=== PATIENT | female | born 1955 | race Two or more races ===

== ENCOUNTER 2023-07-31 13:33 | Emergency (ER) | payer OTHER ==
[~2023-07-31] VITALS: Ht 162.6 cm; Wt 60.8 kg
[2023-07-31] MEDS ORDERED: BISOPROLOL-HCT1 EAC1 PO (13:43)
[2023-07-31 16:02] LABS: HEMATOCRIT 44.1 % (36.0-45.00); HEMOGLOBIN 14.9 g/dL (12.0-15.00); MEAN CELL VOLUME 89.8 fL (80.00-100.00); MEAN CORPUSCULAR HEMOGLOBIN 30.3 pg (27.00-32.0); MEAN CORPUSCULAR HGB CONC 33.7 g/dl (32.0-36.0); RED CELL DISTRIBUTION WIDTH 14.2 % (11.5-14.5)
[2023-07-31 16:03] LABS: PH,URINE 6.5 (5.0-8.0); URINE APPEARANCE Clear; URINE BILIRRUBIN Negative (NEGATIVE); URINE BLOOD Negative; URINE COLOR Yellow; URINE GLUCOSE Negative (NEGATIVE); URINE LEUKOCYTE Trace; URINE NITRATE Negative; URINE PROTEIN Negative (NEGATIVE); URINE UROBILINOGEN 0.2 E.U./dl
[2023-07-31 16:03] LABS: PLATELET COUNT 90 K/uL (150-450)
[2023-07-31 16:06] LABS: URINE BACTERIA 59.1 uL (0.0-1933); URINE WBC 6.9 uL (0.0-23.2)
[2023-07-31 16:08] LABS: URINE RBC 0.5 uL (0.0-20.8)
[2023-07-31 16:22] LABS: CALCIUM 9.8 mg/dL (8.5-10.1); CREATININE SERUM 0.85 mg/dL (0.55-1.02); GFR 66.51; POTASSIUM 4.17 mEq/L (3.5-5.1)
== END 2023-07-31 16:53 | disposition home or self-care (01) ==
LOC: ER 13:33
PROVIDERS: Emergency Medicine
DX: B34.9 Viral infection, unspecified (principal); D69.6 Thrombocytopenia, unspecified; I10 Essential (primary) hypertension